=== PATIENT | female | born 2000 ===

== ENCOUNTER → 2018-12-19 | Outpatient (CLI) | payer OTHER | LOC: LAB.O 13:14 | PROVIDERS: ATTEND Nurse Practitioner Family | DX: N92.6 Irregular menstruation, unspecified (principal) ==

== ENCOUNTER → 2019-09-05 | Outpatient (CLI) | payer OTHER | LOC: LAB.O 11:16 | PROVIDERS: ATTEND Nurse Practitioner Family | DX: N92.6 Irregular menstruation, unspecified (principal); N76.1 Subacute and chronic vaginitis; E28.2 Polycystic ovarian syndrome ==